=== PATIENT | male | born 1960 | race Caucasian/White ===

== ENCOUNTER → 2024-04-28 | Day surgery (SDC) | payer BC, OTHER ==
[~2024-04-28] MED LIST: DUPIXENT P300 MG/2 M INJ; FELODIPINE ER5 MG PO; FENTANYL CITRATE/PF 100MCG/2 ML INJ ONE; HYDRALAZINE HCL 20 MG/ML VIAL ONE; LIDOCAINE HCL 2% LOCAL INJ 5 ML SDV VIAL INJ ONE; MIDAZOLAM HCL 2 MG/2 ML VIAL ONE; PANTOPRAZOLE SO40 MG PO; PROPOFOL IV EMULSION 10 MG/ML 20 ML VIAL ONE; ROSUVASTATIN CA10 MG PO; ZESTRIL10 MG PO
[2024-04-28] MEDS: LACTATED RINGER'S 1,000 ML ONE (10:50)
[2024-04-28 13:30] VITALS: BP 137/84; PULSE 77; RESP 15; TEMP 97.2; O2SAT 97
== END | disposition home or self-care (01) ==
LOC: OR 10:52 → EDSEX 17:00
PROVIDERS: ATTEND Internal Medicine Gastroenterology
DX: K22.2 Esophageal obstruction (principal); D12.0 Benign neoplasm of cecum; K29.70 Gastritis, unspecified, without bleeding; K29.80 Duodenitis without bleeding; K31.89 Other diseases of stomach and duodenum; K44.9 Diaphragmatic hernia without obstruction or gangrene; K57.30 Diverticulosis of large intestine without perforation or abscess without bleeding; K64.8 Other hemorrhoids; I10 Essential (primary) hypertension; E78.5 Hyperlipidemia, unspecified; F10.11 Alcohol abuse, in remission; F17.200 Nicotine dependence, unspecified, uncomplicated; Z01.810 Encounter for preprocedural cardiovascular examination; Z79.899 Other long term (current) drug therapy
CPT/HCPCS: 43239; 43249; 45384; 93005; J0360; J2003; J2250; J2704; J3010; J7121; 43450

== ENCOUNTER → 2024-05-05 | Day surgery (SDC) | payer BC, OTHER ==
[~2024-05-05] MED LIST changes: -FENTANYL CITRATE/PF 100MCG/2 ML INJ ONE; -HYDRALAZINE HCL 20 MG/ML VIAL ONE
[2024-05-05 16:55] VITALS: BP 133/88; PULSE 93; RESP 16; O2SAT 97
== END | disposition home or self-care (01) ==
LOC: ENDO 05:00
PROVIDERS: ATTEND Internal Medicine Gastroenterology
DX: K22.2 Esophageal obstruction (principal); K25.3 Acute gastric ulcer without hemorrhage or perforation; K29.70 Gastritis, unspecified, without bleeding; K29.80 Duodenitis without bleeding; K31.89 Other diseases of stomach and duodenum; K44.9 Diaphragmatic hernia without obstruction or gangrene; I10 Essential (primary) hypertension; E78.5 Hyperlipidemia, unspecified; F17.210 Nicotine dependence, cigarettes, uncomplicated; F10.11 Alcohol abuse, in remission; Z79.899 Other long term (current) drug therapy
CPT/HCPCS: 43239; 43249; J2003; J2250; J2704; 43450